=== PATIENT | female | born 1995 | race Caucasian/White ===

== ENCOUNTER 2019-03-28 01:29 | Emergency (ER) | payer BC ==
[~2019-03-28] VITALS: Ht 172.7 cm; Wt 62.3 kg
[2019-03-28 01:37] VITALS: BP 137/82; TEMP 97.9
[2019-03-28 02:04] VITALS: PULSE 67
== END 2019-03-28 02:05 | disposition home or self-care (01) ==
LOC: COL.ER 01:29
DX: T19.2XXA Foreign body in vulva and vagina, initial encounter (principal)